=== PATIENT | female | born 2000 | race Caucasian/White ===

== ENCOUNTER 2021-01-15 00:07 | Emergency (ER) | payer OTHER ==
[~2021-01-15] VITALS: Ht 167.6 cm; Wt 53.3 kg
--- NOTE | 2021-01-15 01:32 | NUR ---
BREAK RN: PT AMBULATORY TO ROOM FROM TRIAGE AT THIS TIME C STEADY GAIT C FRIEND.
[2021-01-15] MEDS ORDERED: PROPARACAINE OPHTH 0.5%, 15ML ONE (01:48)
[2021-01-15] MEDS ORDERED: FLUORESCEIN OPHTHALMIC 1 MG STRIP ONE (01:49)
[2021-01-15] MEDS ORDERED: HYDROcodone/APAP 5/325 TABLET ONE (02:09)
--- NOTE | 2021-01-15 02:22 | NUR ---
PT LEFT EYE IRRIGATED WITH NS. TOLERATED WELL. NO ADDITIONAL NEEDS. FRIEND AT BEDSIDE
[2021-01-15] MEDS ORDERED: ERYTHROMYCIN OPHTH 0.5%, 1GM LEFTEYE ONE (02:30)
[2021-01-15] MEDS ORDERED: HYDROcodone/APAP 5/325 TABLET PO ONE (02:30)
[2021-01-15] MEDS ORDERED: FLUORESCEIN OPHTHALMIC 1 MG STRIP EACHEYE ONE (02:30)
[2021-01-15] MEDS ORDERED: PROPARACAINE OPHTH 0.5%, 15ML EACHEYE ONE (02:30)
[2021-01-15 03:28] VITALS: BP 118/75
--- NOTE | 2021-01-15 03:28 | NUR ---
Patient given discharge instructions and they have confirmed that they understand the instructions. Patient ambulatory with steady gait. NAD, all questions answered appropriately, denies additional needs at this time. No personal belongings left in room after discharge.
== END 2021-01-15 03:30 | disposition home or self-care (01) ==
LOC: ED 02:48
DX: H18.822 Corneal disorder due to contact lens, left eye (principal); H10.022 Other mucopurulent conjunctivitis, left eye
CPT/HCPCS: 99283